=== PATIENT | female | born 1980 | race Caucasian/White ===

== ENCOUNTER 2022-08-21 09:49 | Outpatient (REF) | payer MEDICARE, MEDICAID, SELFPAY ==
--- NOTE | ~2022-08-21 | CT_ITS ---
EXAMINATION: CT HEAD WITHOUT CONTRAST CLINICAL INFORMATION: Arteriovenous malformation. COMPARISON: None available. TECHNIQUE: Contiguous axial imaging was performed from the skull base to vertex without and following the administration of 85 mL of Omnipaque [address] examination was performed using dose optimization techniques as appropriate, variously including the following: *Automated exposure control. *Adjustment of mA and/or kV according to patient size (this includes techniques or standardized protocols for targeted exams where dose is matched to indication/reason for exam; i.e. extremities or head). *Use of iterative reconstruction technique. DLP: 1469 mGy-cm FINDINGS: Right frontal approach ventriculoperitoneal shunt catheter in place with tip terminating along the floor of the right lateral ventricle near the foramen of [place]. The lateral and third ventricles are mildly expanded without overt evidence of abnormal mass effect. Changes of suboccipital craniectomy for posterior fossa mass resection. Hyperattenuating convex material within residual vascular structures along the resection cavity. Regions of encephalomalacia along the medial aspect of the left cerebellar hemisphere. No suspicious enhancement or increased vascularity within the posterior fossa. Hypoplasia of the brainstem. There is no evidence of acute intracranial hemorrhage or edematous territorial infarction. No additional loss of goode-white matter differentiation. No acute soft tissue or osseous abnormalities. The visualized paranasal sinuses are clear. Small right-sided mastoid effusion. The right-sided mastoid air cells are clear. CT/CT head/brain wo/w IV con IMPRESSION: 1. 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 No suspicious enhancement or increased vascularity within the posterior fossa. 2. Hypoplasia of the brainstem. No evidence of acute intracranial hemorrhage or edematous territorial infarction. 3. Right frontal approach ventriculoperitoneal shunt catheter in place. The lateral and third ventricles are mildly expanded without overt evidence of abnormal mass effect.
[2022-08-21] MEDS: iohexoL 350 MG/ML 100 ML INFUS..BTL IV (10:41)
== END 2022-08-21 09:50 | disposition home or self-care (01) ==
LOC: HO.CT 09:49
PROVIDERS: PCP Internal Medicine; Visit Provider Psychiatry & Neurology Neurology
DX: Q28.2 Arteriovenous malformation of cerebral vessels (principal)
CPT/HCPCS: 70470; Q9967